=== PATIENT | female | born 2000 | race Two or more races ===

== ENCOUNTER → 2020-09-16 | Outpatient (REF) | payer OTHER ==
[2020-09-16 17:21] LABS: HEMOGLOBIN 11.6 g/dl (12.0-15.5); MEAN CORPUSCULAR HEMOGLOBIN 25.8 pg (27.0-33.0); MEAN CORPUSCULAR HGB CONC 30.5 g/dl (32.0-36.5); MEAN CORPUSCULAR VOLUME 84.6 fl (80.0-96.0); PLATELET COUNT, AUTOMATED 317 10^3/uL (150-450); RED BLOOD COUNT 4.49 10^6/uL (4.00-5.40); WHITE BLOOD COUNT 7.5 10^3/uL (4.0-10.0)
[2020-09-16 18:09] LABS: HCG, SERUM QUANTITATIVE 24529 MIU/ML
[2020-09-16 18:43] LABS: HEPATITIS C VIRUS ABY INDEX 0.1 INDEX (<0.8)
[2020-09-16 18:44] LABS: HIV 1&2 SCREEN CENTAUR NEGATIVE (NEGATIVE)
== END ==
LOC: M LAB REF 16:54
PROVIDERS: ATTEND Obstetrics & Gynecology
DX: Z32.01 Encounter for pregnancy test, result positive (principal)

== ENCOUNTER → 2020-09-18 | Outpatient (CLI) | payer OTHER ==
--- NOTE | 2020-09-18 15:56 | REP ---
INDICATION: DATING AND VIABILITY. COMPARISON: None. TECHNIQUE: Multiple real-time transabdominal and endovaginal ultrasonographic images of the gravid uterus. FINDINGS: There is an intrauterine gestational sac with a pole and yolk sac. There is cardiac activity. The heart rate is 135 beats per minute. The pole crown-rump length is 0.6 cm, corresponding to 6 weeks 3 days gestational age. The GABI is 05/11/2021. Gestational age by LMP is 10 weeks 6 days with an GABI of 04/10/2021. The yolk sac is normal size measuring 3.6 mm. There is no subchorionic hematoma The cervix measures 3.1 cm length. Right ovary: There is a 2.3 x 1.9 x 2.1 cm right ovarian cyst, likely a corpus luteum. There is right ovarian vascular flow with color Doppler assessment. Left ovary: The left ovary is obscured by bowel and could not be identified. IMPRESSION: Intrauterine gestation as described. Right ovarian corpus luteum. Left ovary is obscured by bowel. <Electronically signed by Vazquez Jameson > 09/18/20 [id number]
== END ==
LOC: M WHC 13:08 → EDUNIT# 13:30
PROVIDERS: ATTEND Advanced Practice Midwife
DX: O36.80X0 Pregnancy with inconclusive fetal viability, not applicable or unspecified (principal); Z3A.10 10 weeks gestation of pregnancy

== ENCOUNTER → 2021-01-06 | Outpatient (CLI) | payer OTHER ==
--- NOTE | 2021-01-07 16:56 | REP ---
INDICATION: ANATOMY. COMPARISON: None. TECHNIQUE: Multiple sonographic images of the gravid uterus. FINDINGS: There is a single intrauterine gestation in a breech presentation. The placenta is posterior, grade 1 maturity. The umbilical cord inserts centrally on the placenta. There is a three-vessel cord. The cervix measures 3.4 cm. heart rate is 158 beats per minute. Subjectively the amniotic fluid volume is normal. Composite ultrasound gestational age by today's study is 22 weeks 4 days with an GABI of 05/08/2021. Gestational age by the 1st ultrasound is 26 weeks 4 days with an GABI of 04/10/2021. Estimated weight is 525 g. This corresponds to 1 lb, 2 oz. This is the 71st percentile for 22 weeks 1 day. The following anatomic structures are identified and are unremarkable: Cranium, cavum septum pellucidum, falx, intracranial ventricles, choroid plexus, cerebellum, cisterna magna, nuchal fold, facial profile, cardiac rhythm, stomach ache, right and left kidneys, bladder, right and left upper extremities, and 3 vessel cord. Suboptimally demonstrated because of maternal body habitus position are: upper lip, four-chamber view of the heart, cardiac right left ventricular outflow tracts, diaphragm, abdominal wall and cord insertion, spine and right and left lower extremities. A follow-up study dedicated to these structures might be considered. IMPRESSION: size and anatomy as described above. A follow-up study might be considered for those structures not optimally visualized today. <Electronically signed by Vazquez Jameson > 01/07/21 [id number]
== END ==
LOC: M WHC 13:05
PROVIDERS: ATTEND Obstetrics & Gynecology
DX: Z36.89 Encounter for other specified antenatal screening (principal); Z3A.22 22 weeks gestation of pregnancy

== ENCOUNTER → 2021-02-15 | Outpatient (CLI) | payer OTHER ==
--- NOTE | 2021-02-15 14:14 | REP ---
INDICATION: F/U ANATOMY COMPARISON: 01/06/2021 TECHNIQUE: Transabdominal obstetrical ultrasound with color Doppler evaluation. FINDINGS: Examination demonstrates a single live intrauterine in cephalic presentation. motion is identified by technologist. Placenta is noted posterior and grade 1 without evidence for placenta previa or abruption. Amniotic fluid volume is normal. Cervix measures 3.4 cm in length and appears closed.. Gestational age by GABI 20/7 weeks 6 days with GABI 05/11/2021. Gestational age by current measurements 28 weeks 2 days with GABI 05/08/2021. FHR equals 150 beats per minute. Estimated weight 1202 grams (54thpercentile). ABBY: 16.1 cm Anatomical evaluation is limited due to maternal body habitus and positioning. Visualize normal structures include spine, nose/lips, lower extremities, diaphragm, and four-chamber heart. The cardiac ventricular outflow tracts are limited due to positioning. IMPRESSION: Single live intrauterine in cephalic presentation demonstrating appropriate estimated weight and growth. Anatomical structures as listed above appear normal on current examination. Continued limited evaluation of the cardiac ventricular outflow tracts. <Electronically signed by Renato Oliva > 02/15/21 [id number]
== END ==
LOC: M WHC 09:36
PROVIDERS: ATTEND Obstetrics & Gynecology
DX: Z34.82 Encounter for supervision of other normal pregnancy, second trimester (principal); Z36.2 Encounter for other antenatal screening follow-up; Z3A.20 20 weeks gestation of pregnancy

== ENCOUNTER → 2021-03-01 | Outpatient (CLI) | payer OTHER ==
[2021-03-01 15:05] LABS: HEMATOCRIT 35.6 % (36.0-47.0); HEMOGLOBIN 11.6 g/dl (12.0-15.5); MEAN CORPUSCULAR HGB CONC 32.6 g/dl (32.0-36.5); PLATELET COUNT, AUTOMATED 230 10^3/uL (150-450); WHITE BLOOD COUNT 9.8 10^3/uL (4.0-10.0)
== END ==
LOC: M LAB 13:46
PROVIDERS: ATTEND Advanced Practice Midwife
DX: Z34.03 Encounter for supervision of normal first pregnancy, third trimester (principal); Z36.89 Encounter for other specified antenatal screening

== ENCOUNTER → 2021-04-08 | Outpatient (REF) | payer OTHER | LOC: M LAB REF 16:48 | PROVIDERS: ATTEND Advanced Practice Midwife | DX: Z34.83 Encounter for supervision of other normal pregnancy, third trimester (principal) ==

== ENCOUNTER 2021-04-21 02:09 | Inpatient (IN) | payer OTHER ==
[2021-04-21] VITALS (27 sets, daily range): BP systolic 109–165; BP diastolic 54–83
[~2021-04-21] VITALS: Ht 162.6 cm; Wt 112.4 kg
[~2021-04-21 02:09] MED LIST: LATU40TA PO; ZOLO25TA PO
[2021-04-21] MEDS ORDERED: LACTATED RINGER'S 1000 ML IV STA (02:51)
[2021-04-21] MEDS ORDERED: ceFAZolin SOD 2 GM in IV 1 EA IV ONE (02:55)
[2021-04-21] MEDS ORDERED: LR 1,000 ML IV SCH (02:55)
[2021-04-21] MEDS ORDERED: BICITRA 30ML SOLN UDC PO ONE (02:55)
[2021-04-21] MEDS ORDERED: BICITRA 30ML SOLN UDC As Ordered ONE (02:57)
[2021-04-21] MEDS ORDERED: ceFAZolin 2 GM/D5W 50 ML IV BAG (J0690 PER 500MG) As Ordered ONE (02:57)
--- NOTE | 2021-04-21 03:00 | HPEPDOC ---
Obstetrical History & Physical General Date of Admission Apr 21, 2021 at 02:35 History of Present Illness 21 yo at 37 1/7 weeks by 8 week ultrasound (EDC=05/11/21) presents with regul ar contractions every 3-4 minutes for several hours. No bleeding. H/O prior section. Pt plans repeat . Pt of [facility], Dr. Middleton Information Provided By: Patient Age: 21 : 2 Term: 1 Pre-term: 0 Abortions: 0 Livin Care Care: Good Care Dating Final EDC: May 11, 2021 Final EDC by: 1st trimester (US) Antepartum Course Diagnos(e)s prior Past Medical History Past Obstetrical History : Past Obstetrical History: Multigravida Past Medical History Medical History ob hx: c/s x 1 at 38 weeks med hx: Bipolar Panic attacks Surgical History: section Family History Significant Family History: No pertinent family hx Social History Marital Status: Family situation: Spouse/partner home Psychosocial History: Anxiety, Bipolar * Smoker: non-smoker Drugs: denies Medications Miscellaneous Medications Lurasidone Hydrochloride (Latuda) 40 Mg Tablet, 40 MG PO Sertraline Hcl (Zoloft) 25 Mg Tablet, 25 MG PO Physical Examination Physical Examination GENERAL: Alert and oriented times three. BREAST: . ABDOMEN: Gravid and non-tender to touch. FETUS: Is vertex (VTX) by sterile vaginal examination (SVE), fetus is vertex (VTX) by Ramiro. HEART RATE: Regular rate and rhythm. LUNGS: Clear to auscultation (CTA). EXTREMITIES: No edema. No clonus. Deep tendon reflexes (DTRs) + . Laboratory Data [facility] Laboratory Tests 2 04/21/21 02:39: Serology Scanned Report Hepatitis B Testing Pertinent Laboratoy Data Blood Type: B+ Vaginal Examination Dilation: 4 cm Effacement: 100% Station: -2 Cervical Consistency: Soft Cervical Position: Middle Presentation: Cephalic presentation Assessment Variability: Moderate Tocometer Contractions: Yes Frequency: regular Strength: palpated as moderate Assessment/Plan Assessment 21 yo at 37 1/7 weeks gestation by 8 week ultrasound presents in labor. 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 NPO Consent for Plan repeat today, as pt is in labor SIGRID ZHENG MD Apr 21, 2021 03:00
[2021-04-21] MEDS ORDERED: OXYTOCIN 30 UNITS IN 0.9% NaCl 500ML IV BAG (J2590) As Ordered ONE ×2 (03:05→03:47)
[2021-04-21] MEDS ORDERED: MORPHINE PRES-FREE INJ 10 MG/10 ML VIAL (J2274) As Ordered ONE (03:05)
[2021-04-21 03:19] LABS: HEMATOCRIT 39.7 % (36.0-47.0); HEMOGLOBIN 13.2 g/dl (12.0-15.5); MEAN CORPUSCULAR HEMOGLOBIN 29.5 pg (27.0-33.0); MEAN CORPUSCULAR HGB CONC 33.2 g/dl (32.0-36.5); MEAN CORPUSCULAR VOLUME 88.6 fl (80.0-96.0); PLATELET COUNT, AUTOMATED 235 10^3/uL (150-450); RED BLOOD COUNT 4.48 10^6/uL (4.00-5.40); WHITE BLOOD COUNT 10.5 10^3/uL (4.0-10.0)
[2021-04-21] MEDS ORDERED: REFRIGERATOR IV KEYS XX PRN (04:35)
[2021-04-21] MEDS ORDERED: ONDANSETRON 4MG/2ML VIAL IV PRN ×2 (04:35→06:10)
[2021-04-21] MEDS ORDERED: LACTATED RINGER'S 1000 ML IV PRN (04:35)
[2021-04-21] MEDS ORDERED: diphenhydrAMINE 50MG/ML VIAL (J1200) IV PRN (04:35)
[2021-04-21] MEDS ORDERED: EPIDURAL/PCA KEYS XX PRN (04:35)
[2021-04-21] MEDS ORDERED: ePHEDrine SULFATE 25 MG/5 ML(5MG/ML) SYRINGE IV PRN (04:35)
[2021-04-21] MEDS ORDERED: FENTANYL/ROPIVACAINE/NACL BAG 100 ML EPIDURAL SCH (04:35)
[2021-04-21] MEDS ORDERED: NALOXONE INJ 0.4MG/1ML VIAL (J2310 PER 1MG) IV PRN (04:35)
[2021-04-21] MEDS ORDERED: EPIDURAL COMMENT XX SCH (04:35)
[2021-04-21 05:46] LABS: CORD GAS ABE A -4.7; CORD GAS ABE V -1.9; CORD GAS HCO3 A 25.2 MEQ/L; CORD GAS HCO3 V 25.5 MEQ/L; CORD GAS O2 SAT A 24.4 %; CORD GAS O2 SAT V 68.1 %; CORD GAS PCO2 A 67.7 mmHg; CORD GAS PCO2 V 53.1 mmHg; CORD GAS PH A 7.189 UNITS; CORD GAS PH V 7.299 UNITS; CORD GAS PO2 A 14.7 mmHg; CORD GAS PO2 V 28.2 mmHg; CORD GAS SBC A 18.9 MEQ/L; CORD GAS SBC V 22.1 MEQ/L; CORD GAS TCO2 A 27.3 MEQ/L; CORD GAS TCO2 V 27.1 MEQ/L
[2021-04-21] MEDS ORDERED: METHYLERGONOVINE MALEATE 0.2 MG TAB PO PRN (06:10)
[2021-04-21] MEDS ORDERED: RHOGAM 300 MCG (1500 IU) INJ (J2790) IM SCH (06:10)
[2021-04-21] MEDS ORDERED: ACETAMINOPHEN 500 MG TAB PO PRN (06:10)
[2021-04-21] MEDS ORDERED: DOCUSATE SODIUM 100MG CAPSULE PO PRN (06:10)
[2021-04-21] MEDS ORDERED: MEASLES,MUMPS,RUBELLA VACCINE INJ (MMR-II) (90707) SC SCH (06:10)
[2021-04-21] MEDS ORDERED: IBUPROFEN 600MG TAB PO PRN (06:10)
[2021-04-21] MEDS ORDERED: OXYTOCIN DRIP 30 UNITS in IV 1 EA IV ONE (06:10)
[2021-04-21] MEDS ORDERED: LIDOCAINE 1% MDV 20ML VIAL INFIL ONE (06:10)
[2021-04-21] MEDS ORDERED: IBUPROFEN 800 MG TAB PO PRN (06:10)
[2021-04-21] MEDS: PRENATAL VITAMINS CHEWABLE TABLET PO SCH (08:47)
[2021-04-21] MEDS ORDERED: PILL CUTTER 1 EACH XX PRN ×2 (09:50)
[2021-04-21] MEDS: FERROUS GLUCONATE 324 MG TAB PO SCH ×2 (10:07→20:54)
[2021-04-21] MEDS: ACETAMINOPHEN TAB 650MG DOSE (2X325MG) PO PRN (11:30)
--- NOTE | 2021-04-21 12:06 | DNPDOC ---
[facility] Delivery Note Delivery Note DATE OF DELIVERY: April 21, 2021 PREDELIVERY DIAGNOSIS: 37-1/7 weeks' gestation and labor, TOLAC. POST DELIVERY DIAGNOSIS: Delivered. PROCEDURE: Low forceps assisted vaginal delivery, successful . EAR FLAP BINDER: Dr. Sigrid Zheng MD ANESTHESIA: epidural ESTIMATED BLOOD LOSS: 300 mL. FINDINGS: 6 pound 3 ounce male infant, Score 7/9, nuchal cord times 1. DELIVERY SUMMARY: Patient is a 21-year-old 2 now para 2 who was admitted for labor. She had a prior section. She expressed desire for a repeat section initially. However, she changed her mind while the OR was being prepared. She then received an epidural. She had spontaneous rupture of membranes, and progressed to become 10 cms without any need for augmentation. After about a one hour second stage of labor there was persistent bradycardia with variable decelerations noted. This became consistent with a category III tracing. The patient was counselled about operative vaginal delivery. Josemanuel-McClane forceps with Luikhart Modification were applied to the +2 vertex. Delivery was accomplished with a single, controlled traction along with maternal effort. Tight nuchal cord x 1 reduced manually. The shoulders delivered with ease. Cord blood obtained for blood gas analysis. The placenta delivered spontaneously and appeared intact. The patient received IV Pitocin immediately after delivery of the placenta. Bilateral sulcus tears and a first degree perineal laceration were repaired with 2-O Chromic in the usual fashion. Sponge and needle counts were correct. SIGRID ZHENG MD Apr 21, 2021 12:06
[2021-04-21] MEDS ORDERED: DIBUCAINE 1% OINTMENT 30GM TOP PRN (15:25)
[2021-04-21] MEDS ORDERED: LURASIDONE HCL 40 MG TAB (LATUDA) PO SCH (18:00)
[2021-04-21] MEDS ORDERED: diphenhydrAMINE 25MG CAP PO SCH (21:00)
[2021-04-21] MEDS ORDERED: SERTRALINE HCL 25 MG TABLET PO SCH (21:00)
[2021-04-22 06:00] VITALS: BP 138/79
[2021-04-22] MEDS: ACETAMINOPHEN TAB 650MG DOSE (2X325MG) PO PRN (08:10)
[2021-04-22] MEDS: FERROUS GLUCONATE 324 MG TAB PO SCH (08:11)
[2021-04-22] MEDS ORDERED: BOOSTRIX/ADACEL VACCINE (DIPHTH/PERTUSS/ACELL/TETANUS) 0.5ML SYR IM ONE (09:00)
[2021-04-22] MEDS: PRENATAL VITAMINS CHEWABLE TABLET PO SCH (09:00)
[2021-04-24] MEDS ORDERED: BOOSTRIX/ADACEL VACCINE (DIPHTH/PERTUSS/ACELL/TETANUS) 0.5ML SYR IM ONE (09:00)
== END 2021-04-22 15:20 | disposition home or self-care (01) | DRG 560 ==
LOC: M LDO 02:09 → M LDI 02:35 → M OBS 08:33
PROVIDERS: ADMIT Specialist; ATTEND Specialist
PROC: 10D07Z3 Extraction of Products of Conception, Low Forceps, Via Natural or Artificial Opening (ICD-10-PCS; principal; 2021-04-21)
PROC: 0HQ9XZZ Repair Perineum Skin, External Approach (ICD-10-PCS; 2021-04-21)
DX: O34.211 Maternal care for low transverse scar from previous cesarean delivery (principal); O99.344 Other mental disorders complicating childbirth; F31.9 Bipolar disorder, unspecified; Z37.0 Single live birth; Z3A.37 37 weeks gestation of pregnancy; F41.0 Panic disorder [episodic paroxysmal anxiety]; Z79.899 Other long term (current) drug therapy; O76 Abnormality in fetal heart rate and rhythm complicating labor and delivery; O69.1XX0 Labor and delivery complicated by cord around neck, with compression, not applicable or unspecified; O70.0 First degree perineal laceration during delivery

== ENCOUNTER → 2021-05-27 | Outpatient (CLI) | payer OTHER ==
[2021-05-27 14:03] LABS: ALBUMIN 3.8 GM/DL (3.2-5.2); ALT/SGPT 69 U/L (12-78); BILIRUBIN,TOTAL 0.5 MG/DL (0.2-1.0); BLOOD UREA NITROGEN 10 MG/DL (7-18); CARBON DIOXIDE LEVEL 29 MEQ/L (21-32); CHLORIDE LEVEL 108 MEQ/L (98-107); CREATININE FOR GFR 0.54 MG/DL (0.55-1.30); GLOMERULAR FILTRATION RATE > 60.0 (>60); GLUCOSE, FASTING 79 MG/DL (70-100); POTASSIUM SERUM 4.7 MEQ/L (3.5-5.1); SODIUM LEVEL 140 MEQ/L (136-145); TOTAL PROTEIN 7.2 GM/DL (6.4-8.2)
== END ==
LOC: M PLALAB 10:52
PROVIDERS: ATTEND Psychiatry & Neurology Psychiatry
DX: F31.89 Other bipolar disorder (principal); F33.2 Major depressive disorder, recurrent severe without psychotic features; F41.0 Panic disorder [episodic paroxysmal anxiety]; F90.8 Attention-deficit hyperactivity disorder, other type

== ENCOUNTER 2022-08-20 18:54 | Observation (INO) | payer OTHER ==
[~2022-08-20] VITALS: Ht 162.6 cm; Wt 101.7 kg
[~2022-08-20 18:54] MED LIST changes: -LATU40TA PO; +LATU40TA2 PO
[2022-08-20 19:28] LABS: VENOUS HCO3 20.5 MEQ/L (23.0-27.0); VENOUS O2 SATURATION 98.5 % (60.0-80.0); VENOUS PARTIAL PRESSURE CO2 39.5 mmHg (38.0-50.0); VENOUS PARTIAL PRESSURE O2 141.7 mmHg (30.0-50.0); VENOUS PH 7.332 UNITS (7.330-7.430); VENOUS STANDARD HCO3 20.4 MEQ/L; VENOUS TOTAL CO2 21.7 MEQ/L (24.0-28.0)
[2022-08-20 19:30] LABS: BASO % 0.4 % (0.0-1.0); EOS # 0.1 10^3/uL (0.0-0.5); EOS % 0.7 % (0.0-3.0); HEMATOCRIT 34.9 % (36.0-47.0); HEMOGLOBIN 10.9 g/dl (12.0-15.5); LYMPH # 2.5 10^3/uL (1.5-5.0); LYMPH % 22.6 % (24.0-44.0); MEAN CORPUSCULAR HEMOGLOBIN 24.7 pg (27.0-33.0); MEAN CORPUSCULAR HGB CONC 31.2 g/dl (32.0-36.5); MEAN CORPUSCULAR VOLUME 79.1 fl (80.0-96.0); MONO # 0.6 10^3/uL (0.0-0.8); MONO % 5.5 % (2.0-8.0); NEUTROPHILS # 7.8 10^3/uL (1.5-8.5); NEUTROPHILS % 70.5 % (36.0-66.0); PLATELET COUNT, AUTOMATED 338 10^3/uL (150-450); RED BLOOD COUNT 4.41 10^6/uL (4.00-5.40)
[2022-08-20 19:42] LABS: HCG, SERUM QUALITATIVE NEGATIVE (NEGATIVE)
[2022-08-20 20:08] LABS: ACETAMINOPHEN LEVEL < 2.0 UG/ML (10.0-30.0); ALBUMIN 3.8 GM/DL (3.2-5.2); ALT/SGPT 21 U/L (12-78); BILIRUBIN,DIRECT 0.1 MG/DL (0.0-0.2); BILIRUBIN,TOTAL 0.2 MG/DL (0.2-1.0); BLOOD UREA NITROGEN 13 MG/DL (7-18); CALCIUM LEVEL 9.2 MG/DL (8.5-10.1); CARBON DIOXIDE LEVEL 20 MEQ/L (21-32); CHLORIDE LEVEL 109 MEQ/L (98-107); CREATININE FOR GFR 0.64 MG/DL (0.55-1.30); ETHYL ALCOHOL (ETHANOL) 0.056 % (0.000-0.010); GLOMERULAR FILTRATION RATE > 60.0 (>60); GLUCOSE, FASTING 87 MG/DL (70-100); POTASSIUM SERUM 3.8 MEQ/L (3.5-5.1); SALICYLATE LEVEL < 1.7 MG/DL (5.0-30.0); SODIUM LEVEL 139 MEQ/L (136-145); THYROID STIMULATING HORMONE 0.596 uIU/ML (0.358-3.740); TOTAL PROTEIN 7.6 GM/DL (6.4-8.2)
[2022-08-20] MEDS ORDERED: CHARCOAL ACTIVATED LIQUID 25 GM/120 ML BTL PO ONE (20:15)
[2022-08-20 20:41] LABS: AMPHETAMINES LEVEL URINE NEGATIVE (NEGATIVE); BARBITURATES URINE NEGATIVE (NEGATIVE); BENZODIAZEPINES URINE NEGATIVE (NEGATIVE); CANNABINOIDS URINE NEGATIVE (NEGATIVE); COCAINE METABOLITE URINE NEGATIVE (NEGATIVE); METHADONE URINE NEGATIVE (NEGATIVE); OPIATES URINE NEGATIVE (NEGATIVE); PHENCYCLIDINE URINE NEGATIVE (NEGATIVE)
[2022-08-20] MEDS ORDERED: BUSP10TA79 PO (21:20)
[2022-08-20] MEDS ORDERED: AMPH1CAP15 PO (21:20)
[2022-08-20] MEDS ORDERED: BUSP1TAB PO (21:20)
[2022-08-20] MEDS ORDERED: LATU20TA PO (21:20)
[2022-08-20] MEDS ORDERED: HOME MED LIST COMPLETE! XX SCH (21:20)
[2022-08-20 22:12] LABS: RSV AMPLIFICATION NEGATIVE (NEGATIVE)
[2022-08-21 05:15] VITALS: BP 126/59
[2022-08-21 06:57] LABS: HEMATOCRIT 34.2 % (36.0-47.0); HEMOGLOBIN 10.3 g/dl (12.0-15.5); MEAN CORPUSCULAR HEMOGLOBIN 24.3 pg (27.0-33.0); MEAN CORPUSCULAR HGB CONC 30.1 g/dl (32.0-36.5); MEAN CORPUSCULAR VOLUME 80.7 fl (80.0-96.0); PLATELET COUNT, AUTOMATED 299 10^3/uL (150-450); RED BLOOD COUNT 4.24 10^6/uL (4.00-5.40); WHITE BLOOD COUNT 8.8 10^3/uL (4.0-10.0)
[2022-08-21 07:42] LABS: ALBUMIN 3.6 GM/DL (3.2-5.2); ALT/SGPT 18 U/L (12-78); BILIRUBIN,TOTAL 0.3 MG/DL (0.2-1.0); BLOOD UREA NITROGEN 11 MG/DL (7-18); CALCIUM LEVEL 8.9 MG/DL (8.5-10.1); CARBON DIOXIDE LEVEL 25 MEQ/L (21-32); CHLORIDE LEVEL 109 MEQ/L (98-107); GLOMERULAR FILTRATION RATE > 60.0 (>60); GLUCOSE, FASTING 89 MG/DL (70-100); MAGNESIUM LEVEL 2.1 MG/DL (1.8-2.4); POTASSIUM SERUM 3.9 MEQ/L (3.5-5.1); SODIUM LEVEL 139 MEQ/L (136-145); TOTAL PROTEIN 7.1 GM/DL (6.4-8.2)
[2022-08-21 07:52] VITALS: BP 115/58
[2022-08-21] MEDS: ENOXAPARIN 40MG/0.4ML SYRINGE (J1650 PER 10MG) SC SCH (09:39)
[2022-08-21] MEDS: SERTRALINE HCL 50 MG TAB PO SCH (16:52)
[2022-08-21] MEDS ORDERED: FAMOTIDINE 40MG/5ML ORAL SUSPENSON 50ML BOTTLE PO PRN (17:25)
[2022-08-21] MEDS ORDERED: LURASIDONE HCL 40MG TAB (LATUDA) PO SCH (18:00)
[2022-08-21 20:00] VITALS: BP 126/64
[2022-08-21] MEDS: busPIRone 10 MG TAB PO SCH (20:42)
[2022-08-22] VITALS: BP 132/67
[2022-08-22 04:00] VITALS: BP 122/74
[2022-08-22 08:00] VITALS: BP 101/52
[2022-08-22] MEDS: busPIRone 10 MG TAB PO SCH (08:30)
[2022-08-22] MEDS: SERTRALINE HCL 50 MG TAB PO SCH (08:30)
[2022-08-22] MEDS: ENOXAPARIN 40MG/0.4ML SYRINGE (J1650 PER 10MG) SC SCH (08:30)
[2022-08-22 11:19] VITALS: BP 111/64
[2022-08-22 16:00] VITALS: BP 125/60
== END 2022-08-22 13:58 ==
LOC: EDBD 18:54 → M ED 18:54 → M ED INP 18:55 → M PCU 08-21 05:42
PROVIDERS: ADMIT Family Medicine; ATTEND Family Medicine
DX: T14.91XA Suicide attempt, initial encounter (principal); T43.222A Poisoning by selective serotonin reuptake inhibitors, intentional self-harm, initial encounter; T42.8X2A Poisoning by antiparkinsonism drugs and other central muscle-tone depressants, intentional self-harm, initial encounter; T43.502A Poisoning by unspecified antipsychotics and neuroleptics, intentional self-harm, initial encounter; Y92.008 Other place in unspecified non-institutional (private) residence as the place of occurrence of the external cause; Y93.9 Activity, unspecified; Y99.9 Unspecified external cause status; F32.A Depression, unspecified; Z79.899 Other long term (current) drug therapy
CPT/HCPCS: 36415; 71045; 80048; 80053; 80076; 80143; 80307; 82077; 82550; 82803; 83605; 83735; 83930; 84443; 84702; 84703; 85025; 85027; 87631; 93005; 93041; 94760; 99285; J1650

== ENCOUNTER 2022-08-22 13:27 | Inpatient (IN) | payer OTHER ==
[~2022-08-22] VITALS: Ht 162.6 cm; Wt 101.7 kg
[~2022-08-22 13:27] MED LIST changes: +AMPH1CAP15 PO; +BUSP10TA79 PO; +BUSP1TAB PO; +LATU20TA PO
[2022-08-22] MEDS ORDERED: MAALOX 30 ML SUSP *UDC PO PRN (13:30)
[2022-08-22] MEDS ORDERED: FAMOTIDINE 20 MG TAB PO PRN (13:30)
[2022-08-22] MEDS ORDERED: MOM 30ML SUSPENSION UDC PO PRN (13:30)
[2022-08-22 14:14] VITALS: BP 119/67
[2022-08-22] MEDS: LURASIDONE HCL 40MG TAB (LATUDA) PO SCH (18:27)
[2022-08-23] MEDS: busPIRone 10 MG TAB PO SCH ×3 (00:07→21:12)
[2022-08-23 06:47] VITALS: BP 109/54
[2022-08-23] MEDS ORDERED: SERTRALINE HCL 50 MG TAB PO SCH (09:00)
[2022-08-23] MEDS: ACETAMINOPHEN TAB 650MG DOSE (2X325MG) PO PRN (16:43)
[2022-08-23 18:07] VITALS: BP 117/72
[2022-08-23] MEDS: LURASIDONE HCL 40MG TAB (LATUDA) PO SCH (18:13)
[2022-08-23] MEDS: traZODone 50 MG TAB PO PRN (21:12)
[2022-08-24 06:02] VITALS: BP 109/57
[2022-08-24] MEDS: busPIRone 10 MG TAB PO SCH ×2 (09:08→20:56)
[2022-08-24 13:12] LABS: CHOLESTEROL RISK RATIO 2.99 (<5); HDL CHOLESTEROL 42.8 MG/DL (>40); LDL CHOLESTEROL 69.8 MG/DL (<100)
[2022-08-24] MEDS: LURASIDONE HCL 40MG TAB (LATUDA) PO SCH (18:10)
[2022-08-24 18:14] VITALS: BP 131/68
[2022-08-24] MEDS: traZODone 50 MG TAB PO PRN (20:56)
[2022-08-25 06:17] VITALS: BP 117/54
[2022-08-25] MEDS: busPIRone 10 MG TAB PO SCH ×2 (08:54→21:14)
[2022-08-25] MEDS: NICOTINE 21MG/24HR 1 EA TRANSDERMAL TD PRN (08:54)
[2022-08-25 18:31] VITALS: BP 140/67
[2022-08-25] MEDS: LURASIDONE HCL 40MG TAB (LATUDA) PO SCH (18:35)
[2022-08-25] MEDS: ACETAMINOPHEN TAB 650MG DOSE (2X325MG) PO PRN (21:14)
[2022-08-25] MEDS: traZODone 50 MG TAB PO PRN (21:14)
[2022-08-26 06:12] VITALS: BP 106/54
[2022-08-26] MEDS: busPIRone 10 MG TAB PO SCH ×2 (08:09→20:13)
[2022-08-26] MEDS: NICOTINE 21MG/24HR 1 EA TRANSDERMAL TD PRN (08:09)
[2022-08-26] MEDS: LURASIDONE HCL 40MG TAB (LATUDA) PO SCH (18:06)
[2022-08-26 18:12] VITALS: BP 119/68
[2022-08-27] MEDS: busPIRone 10 MG TAB PO SCH ×2 (07:53→21:16)
[2022-08-27] MEDS: NICOTINE 21MG/24HR 1 EA TRANSDERMAL TD PRN (07:54)
[2022-08-27] MEDS: ACETAMINOPHEN TAB 650MG DOSE (2X325MG) PO PRN (13:37)
[2022-08-27] MEDS: LURASIDONE HCL 40MG TAB (LATUDA) PO SCH (17:58)
[2022-08-27 18:14] VITALS: BP 118/57
[2022-08-27] MEDS: traZODone 50 MG TAB PO PRN (21:16)
[2022-08-28] MEDS: busPIRone 10 MG TAB PO SCH ×2 (08:26→21:00)
[2022-08-28] MEDS: NICOTINE 21MG/24HR 1 EA TRANSDERMAL TD PRN (08:28)
[2022-08-28 17:26] VITALS: BP 134/67
[2022-08-28] MEDS: LURASIDONE HCL 40MG TAB (LATUDA) PO SCH (18:08)
[2022-08-28] MEDS: traZODone 50 MG TAB PO PRN (21:00)
[2022-08-29 06:25] VITALS: BP 101/56
[2022-08-29] MEDS: busPIRone 10 MG TAB PO SCH (08:38)
[2022-08-29] MEDS: NICOTINE 21MG/24HR 1 EA TRANSDERMAL TD PRN (08:38)
[2022-08-29] MEDS ORDERED: TRAZ-252 PO (08:59)
[2022-08-29] MEDS ORDERED: FAMO20TA PO (08:59)
[2022-08-29] MEDS ORDERED: LATU40TA2 PO (08:59)
[2022-08-29] MEDS ORDERED: BUSP10TA PO (08:59)
== END 2022-08-29 09:49 | disposition home or self-care (01) | DRG 753 ==
LOC: M PSY 14:55
PROVIDERS: ADMIT Psychiatry & Neurology Psychiatry; ATTEND Psychiatry & Neurology Psychiatry
DX: F31.81 Bipolar II disorder (principal); F90.9 Attention-deficit hyperactivity disorder, unspecified type; F41.1 Generalized anxiety disorder; Z91.14 Patient's other noncompliance with medication regimen; R45.851 Suicidal ideations; F17.200 Nicotine dependence, unspecified, uncomplicated